=== PATIENT | female | born 1945 | race African-American/Black ===

== ENCOUNTER 2019-02-19 03:33 | Emergency (ER) | payer MEDICARE ==
[~2019-02-19] VITALS: Ht 160 cm; Wt 59.0 kg
[2019-02-19] MEDS ORDERED: GLUCOTROL10 MG ORAL (03:44)
[2019-02-19] MEDS ORDERED: FLUOXETINE HCL10 MG ORAL (03:44)
[2019-02-19] MEDS ORDERED: ASPIRIN81 MG ORAL (03:44)
[2019-02-19] MEDS ORDERED: FERROUS SULFAT325 MG ORAL (03:44)
[2019-02-19] MEDS ORDERED: LISINOPRIL30 MG ORAL (03:44)
[2019-02-19] MEDS ORDERED: METFORMIN HCL500 M1 ORAL (03:44)
[2019-02-19] MEDS ORDERED: HYDROCHLOROTHIA25 MG ORAL (03:44)
[2019-02-19 04:00] VITALS: BP 136/70
--- NOTE | 2019-02-19 04:00 | NUR ---
ED Nurse Note: PT WAS BROUGHT IN BY RA 41 FROM [facility] C/O VOMITING 5X STARTED @ 1500 YESTERDAY. pt is alert and oriented times 4 with pupiles rounds and reactive to light and accomodating. pt is ambulate with steady gait. pt cardicat assessment is within normal limits, with S1 and S2 noted, cap refill is less than with pulse and sensation noted on all extremities.
[2019-02-19] MEDS ORDERED: Isovue-300 100ml vial INJ PRN (04:15)
[2019-02-19 04:37] LABS: HEMATOCRIT 33.7 % (37.0-47.0); HEMOGLOBIN 11.6 G/DL (12.0-16.0); MEAN CORPUSCULAR VOLUME 86 FL (80-99); PLATELET COUNT 446 K/UL (150-450); RED BLOOD COUNT 3.91 M/UL (4.20-5.40); RED CELL DISTRIBUTION WIDTH 11.5 % (11.6-14.8); WHITE BLOOD COUNT 10.5 K/UL (4.8-10.8)
[2019-02-19 04:39] LABS: APPEARANCE,URINE CLOUDY; BILIRUBIN, URINE NEGATIVE (NEGATIVE); COLOR,URINE PALE YELLOW; GLUCOSE, URINE (UA) NEGATIVE (NEGATIVE); KETONES,URINE 2+ (NEGATIVE); LEUKOCYTE ESTERASE ,URINE 3+ (NEGATIVE); NITRITE,URINE NEGATIVE (NEGATIVE); PH,URINE 7 (4.5-8.0); PROTEIN,URINE 2+ (NEGATIVE); UROBILINOGEN,URINE 1 MG/DL (0.0-1.0)
[2019-02-19 04:48] LABS: ANION GAP 8 mmol/L (5-15); BLOOD UREA NITROGEN 18 mg/dL (7-18); CALCIUM 9.3 MG/DL (8.5-10.1); CARBON DIOXIDE 32 MMOL/L (21-32); CHLORIDE 98 MMOL/L (98-107); POTASSIUM 4.4 MMOL/L (3.5-5.1); SODIUM 138 MMOL/L (136-145)
--- NOTE | 2019-02-19 04:52 | Emergency Room Report ---
History of Present Illness General Chief Complaint: Vomiting Source: Patient, Family Member Present Illness HPI Patient is a 73-year-old female who presented via EMS after increased nausea and vomiting. Patient denies any abdominal pain. She reports of increased vomiting as well as watery diarrhea. She reports of increased abdominal discomfort. Patient had been noted to have multiple episodes of nonbilious nonbloody vomit. Patient denies any current discomfort. Allergies: Coded Allergies: AMLODIPINE (Verified Allergy, Unknown, 02/19/19) LOVASTATIN (Verified Allergy, Unknown, 02/19/19) SPIRONOLACTONE (Verified Allergy, Unknown, 02/19/19) TERAZOSIN (Verified Allergy, Unknown, 02/19/19) Uncoded Allergies: SHELLFISH (Allergy, Unknown, 02/19/19) Patient History Past Medical History: see triage record Last Menstrual Period: 2 DECADES AGO Now: No Reviewed Nursing Documentation: PMH: Agreed; PSxH: Agreed Nursing Documentation-PMH Hx Hypertension: Yes Hx Diabetes: Yes Review of Systems All Other Systems: negative except mentioned in HPI Physical Exam Vital Signs Date Time Temp Pulse Resp B/P (MAP) Pulse Ox O2 Delivery O2 Flow Rate FiO2 02/19/19 03:37 98.4 70 18 136/70 99 Room Air 02/19/19 04:00 99 Sp02 EP Interpretation: reviewed, normal General Appearance: normal inspection, well appearing, no apparent distress, alert, GCS 15 Head: atraumatic ENT: normal ENT inspection, hearing grossly normal, normal voice Neck: normal inspection, full range of motion, supple, no bony tend Respiratory: normal inspection, lungs clear, normal breath sounds, no respiratory distress, no retraction, no wheezing Cardiovascular #1: regular rate, rhythm, no edema Gastrointestinal: normal inspection, normal bowel sounds, non tender, soft, no guarding, no hernia Genitourinary: no CVA tenderness Musculoskeletal: normal inspection, back normal, normal range of motion Neurologic: normal inspection, alert, oriented x3, responsive, client customer manager III-XII nml as tested, speech normal Psychiatric: normal inspection, judgement/insight normal, mood/affect normal Skin: normal inspection, normal color, no rash Medical Decision Making Diagnostic Impression: Primary Impression: Vomiting Additional Impressions: Dehydration Non-STEMI (non-ST elevated myocardial infarction) Urinary tract infection ER Course Presented for vomiting and diarrhea. Differential diagnosis includes is not limited to appendicitis, bowel obstruction, diverticulitis among others. Because of complexity of patient's case laboratory testing and imaging studies were ordered. Laboratory testing showed evidence of urinary infection. Patient given IV antiemetics as well as IV fluids. She was started on IV antibiotics.Patient given aspirin as well as Lovenox after positive troponin. Patient does not have any current chest pain. Repeat troponin is currently pending. Patient was discussed with Dr. Velasco at [facility] for possible transfer. Labs Test 02/19/19 04:18 02/19/19 04:28 Urine Color Pale yellow Urine Appearance Cloudy Urine pH 7 (4.5-8.0) Urine Specific [place] 1.010 (1.005-1.035) Urine Protein 2+ (NEGATIVE) Urine Glucose (UA) Negative (NEGATIVE) Urine Ketones 2+ (NEGATIVE) Urine Blood 4+ (NEGATIVE) Urine Nitrite Negative (NEGATIVE) Urine Bilirubin Negative (NEGATIVE) Urine Urobilinogen 1 MG/DL (0.0-1.0) Urine Leukocyte Esterase 3+ (NEGATIVE) Urine RBC 15-20 /HPF (0 - 2) Urine WBC Tntc /HPF (0 - 2) Urine Squamous Epithelial Cells Moderate /LPF (NONE/OCC) Urine Bacteria Many /HPF (NONE) EKG Diagnostic Results Rate: normal Rhythm: NSR ST Segments: no acute changes Last Vital Signs Date Time Temp Pulse Resp B/P (MAP) Pulse Ox O2 Delivery O2 Flow Rate FiO2 02/19/19 04:00 70 18 Room Air 99 02/19/19 04:00 98.4 136/70 99 Status: improved [facility] Condition: Serious Referrals: NON PHYSICIAN (PCP) Claude Willis MD Feb 19, 2019 04:52
[2019-02-19 04:53] LABS: ALANINE AMINOTRANSFERASE 13 U/L (12-78); ALBUMIN 3.4 G/DL (3.4-5.0); ALBUMIN/GLOBULIN RATIO 0.9 (1.0-2.7); ALKALINE PHOSPHATASE 53 U/L (46-116); ASPARTATE AMINO TRANSFERASE 19 U/L (15-37); BILIRUBIN,TOTAL 0.3 MG/DL (0.2-1.0)
[2019-02-19] MEDS ORDERED: cefTRIAXone 1 GM in NS 55 ML IVPB ONE (05:00)
[2019-02-19] MEDS ORDERED: Enoxaparin 60mg Inj SUBQ ONE (05:45)
[2019-02-19 06:00] VITALS: BP 125/69
[2019-02-19 07:24] VITALS: BP 122/70
--- NOTE | 2019-02-19 07:24 | NUR ---
ED Nurse Note: REPORT RECEIVED FROM TYRA ARMENTA. AOX4. PT LAYING PEACEFULLY IN BED IN NAD. NORMAL SINUS RHYTHM ON MONITOR WITH BP: 122/65.
--- NOTE | 2019-02-19 07:25 | NUR ---
HAND-OFF: Report given to ILIANA Banuelos RN.
--- NOTE | 2019-02-19 07:35 | NUR ---
ED Nurse Note: TROPONIN REDRAWN AND SENT TO LAB.
--- NOTE | 2019-02-19 07:43 | NUR ---
Tita castro in EDM - 02/19/19 at 0747 by GAGANDEEP ED Note: RT CALLED FOR PT TRANSFER.
[2019-02-19 09:18] VITALS: BP 119/85
--- NOTE | 2019-02-19 09:56 | NUR ---
spoke to patients son regarding the transfer to [facility] room [facility]. transfer forms has been completed
--- NOTE | 2019-02-19 09:58 | NUR ---
ED Nurse Note: CALLED DANIE ROPER FOR REPORT. RN NOT READY. WILL CALL BACK IN 10 MINUTES.
--- NOTE | 2019-02-19 10:20 | NUR ---
ED Nurse Note: CALLED DANIE ROPER FOR REPORT. BEATA RN STILL NOT READY. WILL CALL BACK FOR REPORT WHEN READY.
--- NOTE | 2019-02-19 10:33 | NUR ---
ED Nurse Note: [facility] AM[facility] AT BEDSIDE. TYRA COTA FROM [facility] ON PHONE. REPORT GIVEN TO AMBULANCE RN, BEATA MACKAY RN, AND EMS. [facility] READY TO ACCEPT PT. PT TAKEN TO [facility] VIA AMBULANCE WITH ALL BELONGINGS ACCOMPANIED BY AMBULANCE RN AND EMS. VSS.
[2019-02-19 10:35] VITALS: BP 122/84
--- NOTE | 2019-02-19 12:47 | Diagnostic Imaging Report ---
Indication: Dyspnea Comparison: None A single view chest radiograph was obtained. Findings: Cardiomediastinal appearance is within normal limits for age. The lungs are clear. Pulmonary vascularity is appropriate. The diaphragmatic contour is smooth and costophrenic angles are sharp. No pleural effusions are identified. The bones are unremarkable. Impression: No acute findings
--- NOTE | 2019-02-20 23:59 | Cardiology Report ---
APPROVED REPORT EKG Measurement Heart [id number] [id number] Normal sinus rhythm Possible Left atrial enlargement Septal infarct, age undetermined Abnormal ECG
--- NOTE | 2019-02-20 23:59 | Cardiology Report ---
APPROVED REPORT EKG Measurement Heart [id number] [place] 140P83 [id number] Normal sinus rhythm Normal ECG
== END 2019-02-19 10:41 | disposition short-term general hospital (02) ==
LOC: EDBD 03:33 → EMR 04:00
DX: R11.2 Nausea with vomiting, unspecified (principal); E86.0 Dehydration; I21.4 Non-ST elevation (NSTEMI) myocardial infarction; N39.0 Urinary tract infection, site not specified; I10 Essential (primary) hypertension; E11.9 Type 2 diabetes mellitus without complications; Z88.8 Allergy status to other drugs, medicaments and biological substances; Z91.013 Allergy to seafood
CPT/HCPCS: 36415; 71045; 80053; 81003; 82962; 83690; 84484; 85025; 85610; 85730; 87086; 87181; 93005; 96365; 96375; 99284; J0696; J1650; J2405; J7040

== ENCOUNTER 2019-12-31 18:27 | Emergency (ER) | payer MEDICARE ==
[~2019-12-31] VITALS: Ht 160 cm; Wt 63.5 kg
[~2019-12-31 18:27] MED LIST: ASPIRIN81 MG ORAL; FERROUS SULFAT325 MG ORAL; FLUOXETINE HCL10 MG ORAL; GLUCOTROL10 MG ORAL; HYDROCHLOROTHIA25 MG ORAL; LISINOPRIL30 MG ORAL; METFORMIN HCL500 M1 ORAL
[2019-12-31] MEDS ORDERED: levETIRAcetam 1,000mg/NS100ml 100 ML IVPB ONE (18:45)
--- NOTE | 2019-12-31 18:45 | NUR ---
ED Nurse Note: PT brought in by ambulance from [email or web address] due to withnessed Sx that happedned while sitting on couch. ( lasting 5 min) PT denies any trauma.
--- NOTE | 2019-12-31 19:01 | Emergency Room Report ---
History of Present Illness General Chief Complaint: Seizure Source: Medical Record, EMS Present Illness HPI Disclaimer: Please note that this report is being documented using DRAGON technology. This can lead to erroneous entry secondary to incorrect interpretation by the dictating instrument. HPI: 74-year-old female with a history of seizure disorder presents for evaluation after a seizure. She presents from [facility]. She had a witnessed 5-minute generalized tonic-clonic seizure while seated on the couch. There was no head injury. Reports prolonged postictal phase. She takes Keppra. On my arrival in the room the patient started vomiting. She is confused but awake and moving all extremities. Cannot provide any significant history at this time. Fingerstick reported by EMS was 200 PMH: Seizure disorder, hypertension, hyperlipidemia, diabetes PSH: Unknown Allergies: Amlodipine, spironolactone Social Hx: Unknown Allergies: Coded Allergies: AMLODIPINE (Verified Allergy, Unknown, 02/19/19) LOVASTATIN (Verified Allergy, Unknown, 02/19/19) SPIRONOLACTONE (Verified Allergy, Unknown, 02/19/19) TERAZOSIN (Verified Allergy, Unknown, 02/19/19) Uncoded Allergies: SHELLFISH (Allergy, Unknown, 02/19/19) Nursing Documentation-PMH Past Medical History: No History, Except For Hx Hypertension: Yes Hx Diabetes: Yes Review of Systems All Other Systems: limited - Patient altered Physical Exam Vital Signs Date Time Temp Pulse Resp B/P (MAP) Pulse Ox O2 Delivery O2 Flow Rate FiO2 12/31/19 18:38 98.2 16 18 188/58 (101) 97 Room Air General: Awake, confused, hypertensive, vomiting HEENT: NC/AT. EOMI. Cardiovascular: RRR. S1 and S2 normal. No murmur appreciated Resp: Normal work of breathing. No cough, wheezing or crackles appreciated Abdomen: Actively vomiting, difficult who performed abdominal exam Skin: Intact. No abrasions, laceration or rash over the exposed skin MSK: Normal tone and bulk. Moving all extremities. No obvious deformity. Neuro: Awake, confused, moving all extremities Medical Decision Making Diagnostic Impression: Primary Impression: Seizures Additional Impressions: Vomiting Lung nodule Renal cyst Fibroid Small vessel disease ER Course 74-year-old female history of seizure disorder presents for assisted living facility after a generalized seizure lasting 5 minutes without head injury. She is currently vomiting. She is remains altered though unknown what her baseline is. No accompanying documents signs. Will send for CT scans of the head and abdomen as well as broad labs including Keppra levels. Will load with Keppra. She will require admission. Laboratory Tests Test 12/31/19 19:00 12/31/19 19:50 White Blood Count 13.2 K/UL (4.8-10.8) H Red Blood Count 4.40 M/UL (4.20-5.40) Hemoglobin 12.6 G/DL (12.0-16.0) Hematocrit 38.6 % (37.0-47.0) Mean Corpuscular Volume 88 FL (80-99) Mean Corpuscular Hemoglobin 28.6 PG (27.0-31.0) Mean Corpuscular Hemoglobin Concent 32.6 G/DL (32.0-36.0) Red Cell Distribution Width 14.5 % (11.6-14.8) Platelet Count 398 K/UL (150-450) Mean Platelet Volume 6.5 FL (6.5-10.1) Neutrophils (%) (Auto) 67.8 % (45.0-75.0) Lymphocytes (%) (Auto) 19.8 % (20.0-45.0) L Monocytes (%) (Auto) 10.0 % (1.0-10.0) Eosinophils (%) (Auto) 1.0 % (0.0-3.0) Basophils (%) (Auto) 1.3 % (0.0-2.0) Sodium Level 139 MMOL/L (136-145) Potassium Level 4.2 MMOL/L (3.5-5.1) Chloride Level 99 MMOL/L (98-107) Carbon Dioxide Level 26 MMOL/L (21-32) Anion Gap 15 mmol/L (5-15) Blood Urea Nitrogen 16 mg/dL (7-18) Creatinine 1.1 MG/DL (0.55-1.30) Estimate Glomerular Filtration Rate mL/min (>60) Glucose Level 170 MG/DL (74-106) H Calcium Level 8.8 MG/DL (8.5-10.1) Total Bilirubin 0.2 MG/DL (0.2-1.0) Aspartate Amino Transferase (AST) 39 U/L (15-37) H Alanine Aminotransferase (ALT) 32 U/L (12-78) Alkaline Phosphatase 94 U/L (46-116) Troponin I Pending Total Protein 7.7 G/DL (6.4-8.2) Albumin 3.5 G/DL (3.4-5.0) Globulin 4.2 g/dL Albumin/Globulin Ratio 0.8 (1.0-2.7) L Lipase 101 U/L (73-393) Salicylates Level 1.4 ug/mL (2.8-20) L Acetaminophen Level < 2 MCG/ML (10-30) L Serum Alcohol < 3 mg/dL Urine Color Pale yellow Urine Appearance Clear Urine pH 5 (4.5-8.0) Urine Specific [place] 1.015 (1.005-1.035) Urine Protein 3+ (NEGATIVE) H Urine Glucose (UA) 2+ (NEGATIVE) H Urine Ketones 1+ (NEGATIVE) H Urine Blood 3+ (NEGATIVE) H Urine Nitrite Negative (NEGATIVE) Urine Bilirubin Negative (NEGATIVE) Urine Urobilinogen Normal MG/DL (0.0-1.0) Urine Leukocyte Esterase Negative (NEGATIVE) Urine RBC 2-4 /HPF (0 - 2) H Urine WBC 0-2 /HPF (0 - 2) Urine Squamous Epithelial Cells Few /LPF (NONE/OCC) Urine Bacteria Few /HPF (NONE) Urine Opiates Screen Negative (NEGATIVE) Urine Barbiturates Screen Negative (NEGATIVE) Phencyclidine (PCP) Screen Negative (NEGATIVE) Urine Amphetamines Screen Negative (NEGATIVE) Urine Benzodiazepines Screen Negative (NEGATIVE) Urine Cocaine Screen Negative (NEGATIVE) Urine Marijuana (THC) Screen Negative (NEGATIVE) EKG Diagnostic Results EKG Time: 19:33 Rate: normal Rhythm: NSR ST Segments: no acute changes Other Impression Sinus rhythm, left axis deviation, no ST segment changes. Normal intervals Rhythm Strip Diag. Results Rhythm Strip Time: 19:33 EP Interpretation: yes Rate: 90 Rhythm: NSR, no PVC's, no ectopy CT/MRI/US Diagnostic Results CT/MRI/US Diagnostic Results : Impression Preliminary Findings Only See Final Report For Complete Findings CT ABDOMEN & PELVIS Without Contrast: Limited by motion and lack of contrast. Note evidence of colitis or bowel obstruction. Appendix not identified. Small hiatal hernia. No radiodense gallstones or pancreatitis. No renal calculi or obstructive changes. Right renal cyst. Calcified fibroid. Old rib fractures. Couple nodules in the lung bases Radiologist: Kerry Lyles M.D. Preliminary Findings Only See Final Report For Complete Findings CT HEAD Without Contrast: No acute intracranial process. Involutional changes with small vessel disease. Cataract surgery. Radiologist: Kerry Lyles M.D. Study ready at 20:19 and initial results transmitted at 20:28 Reevaluation Time: 21:17 Last Vital Signs Date Time Temp Pulse Resp B/P (MAP) Pulse Ox O2 Delivery O2 Flow Rate FiO2 12/31/19 18:38 98.2 16 18 188/58 (101) 97 Room Air Reevaluation Impression Shortly after my initial evaluation the patient she had another brief generalized tonic-clonic seizure lasting approximately 30 seconds and aborted with 2 mg of Ativan. She is again postictal. No evidence of acute injury on CT scan of the head but does note small vessel disease. CT scan of the abdomen without contrast was performed showing a small hiatal hernia but no evidence of bowel obstruction no gallstones or kidney stones. They noted a right renal cyst a calcified fibroid old rib fractures and multiple nodules in the lung bases. Hypertension is improving. She was given her home dose of hydralazine. Labs unremarkable. Patient remains somnolent after receiving the 2 mg of Ativan. She is protecting her airway and had no further episodes of emesis. Patient is stable for transfer to a [facility] facility according to her health plan. [facility]position: [facility] Condition: Stable Martin Jackson MD Dec 31, 2019 19:01
[2019-12-31 19:05] VITALS: BP 188/58
--- NOTE | 2019-12-31 19:05 | NUR ---
ED Nurse Note: Patient was brought in by ambulance from [facility] due to witnessed seizure 5 min while patient was sittting in a couch, lasted 5 min; reports no trauma. Patient presented confused, disoriented, AAO x0, O2 sat87% on RA. Patient was placed on 2L via NC.
[2019-12-31] MEDS ORDERED: LORazepam Inj 2mg/ml 1ml ONE (19:14)
--- NOTE | 2019-12-31 19:14 | NUR ---
ED Nurse Note: Patient had seizure, duration 2 min.
[2019-12-31 19:17] LABS: BASOPHILS % (AUTO) 1.3 % (0.0-2.0); HEMATOCRIT 38.6 % (37.0-47.0); HEMOGLOBIN 12.6 G/DL (12.0-16.0); LYMPHOCYTES % (AUTO) 19.8 % (20.0-45.0); MEAN CORPUSCULAR VOLUME 88 FL (80-99); NEUTROPHILS % (AUTO) 67.8 % (45.0-75.0); PLATELET COUNT 398 K/UL (150-450); RED CELL DISTRIBUTION WIDTH 14.5 % (11.6-14.8); WHITE BLOOD COUNT 13.2 K/UL (4.8-10.8)
[2019-12-31 19:25] LABS: ANION GAP 15 mmol/L (5-15); BLOOD UREA NITROGEN 16 mg/dL (7-18); CALCIUM 8.8 MG/DL (8.5-10.1); CARBON DIOXIDE 26 MMOL/L (21-32); CHLORIDE 99 MMOL/L (98-107); CREATININE 1.1 MG/DL (0.55-1.30); POTASSIUM 4.2 MMOL/L (3.5-5.1); SODIUM 139 MMOL/L (136-145)
[2019-12-31 19:30] LABS: ALANINE AMINOTRANSFERASE 32 U/L (12-78); ALBUMIN 3.5 G/DL (3.4-5.0); ALBUMIN/GLOBULIN RATIO 0.8 (1.0-2.7); ALKALINE PHOSPHATASE 94 U/L (46-116); ASPARTATE AMINO TRANSFERASE 39 U/L (15-37); BILIRUBIN,TOTAL 0.2 MG/DL (0.2-1.0)
[2019-12-31] MEDS ORDERED: LORazepam Inj 2mg/ml 1ml IV ONE (19:30)
--- NOTE | 2019-12-31 20:29 | Diagnostic Imaging Report ---
Indication: Headache Technique: Contiguous 5 mm thick transaxial imaging of the head obtained in a Siemens Sensation [address] scanner. Soft tissue and bone windows generated. Automatic Exposure Control was utilized. Total Dose length Product (DLP): 1363.[address] Dose Index Volume (CTDIvol): 62.7 mGy Comparison: none Findings: There is moderate prominence of the ventricles, basal cisterns, and cerebral sulci consistent with atrophy. There is a central predominance of the atrophy. Moderate, nonspecific, white matter hypoattenuation is noted throughout the brain consistent with chronic small vessel disease. There is no midline shift, edema, acute hemorrhage, mass effect, or abnormal extra-axial fluid collections. Bones are unremarkable. Impression: No acute intracranial bleed, mass effect or edema. Moderate atrophy of the brain. Evidence of chronic small vessel disease involving white matter tracts. [facility] has communicated the preliminary results to the Emergency Department. Their findings are largely concordant with this report. The CT scanner at [facility] is accredited by the [employer] and the scans are performed using dose optimization techniques as appropriate to a performed exam including Automatic Exposure control.
[2019-12-31 20:39] LABS: APPEARANCE,URINE CLEAR; BILIRUBIN, URINE NEGATIVE (NEGATIVE); COLOR,URINE PALE YELLOW; GLUCOSE, URINE (UA) 2+ (NEGATIVE); KETONES,URINE 1+ (NEGATIVE); LEUKOCYTE ESTERASE ,URINE NEGATIVE (NEGATIVE); NITRITE,URINE NEGATIVE (NEGATIVE); PH,URINE 5 (4.5-8.0); PROTEIN,URINE 3+ (NEGATIVE); UROBILINOGEN,URINE NORMAL MG/DL (0.0-1.0)
[2019-12-31 20:52] VITALS: BP 168/98
--- NOTE | 2019-12-31 20:52 | NUR ---
ED Nurse Note: Patient sleeping, VSS at this time, no acute distress noted.
--- NOTE | 2019-12-31 20:53 | Diagnostic Imaging Report ---
INDICATION: Abdominal pain TECHNIQUE: Continuous helical transaxial imaging of the abdomen and pelvis was obtained from the lung bases to the pubic symphysis. No intravenous contrast was administered. Coronal 2-D reformats were also obtained. Automatic Exposure Control was utilized. Total Dose length Product (DLP): [address] Dose Index Volume (CTDIvol): 12.4 mGy Comparison: none FINDINGS: Lungs: There are mild reticular densities posterior lung base. This is likely dependent phenomena or atelectasis. There is a small hiatal hernia. The heart is mildly prominent in size.. Liver: No gross abnormalities are seen but there is considerable artifact and limitation. Gallbladder/biliary system: Again, no obvious abnormality seen. No biliary ductal dilatation is appreciated.. Spleen: Unremarkable Pancreas: Unremarkable Kidneys: There is no hydronephrosis. There is a 1.7 cm hypodensity in the central part of the right kidney nonspecific.. Adrenal glands: Grossly unremarkable. Bowel: No obvious evidence of bowel obstruction but there are very limited. Moderate stool retention in the colon and rectum noted. The rectum is a mildly distended. Bladder: Unremarkable Aorta/IVC: Mural calcification within the aorta and iliac arteries is moderate. Peritoneum: There is a calcified uterine fibroid measuring about 2.2 cm.. No free fluid is identified. Bones: Bones are osteopenic. There is vacuum phenomenon narrowing of the L5-S1 disc. IMPRESSION: Very limited study due to the nonadministration of oral and IV contrast and other artifacts. Basal atelectasis. Right renal hypodensity nonspecific. Cystic versus solid. Moderate fecal retention within the colon and rectum. Calcified uterine fibroid [facility] has communicated the preliminary results to the Emergency Department. Their findings are largely concordant with this report. Note: Evaluation of solid organs is limited on non contrast imaging. The CT scanner at [facility] is accredited by the [employer] and the scans are performed using dose optimization techniques as appropriate to a performed exam including Automatic Exposure control.
[2019-12-31] MEDS ORDERED: APRESOLINE50 MG ORAL (21:11)
[2019-12-31] MEDS ORDERED: ISOSORBIDE MONO30 M1 PO (21:11)
[2019-12-31] MEDS ORDERED: ATORVASTATIN CA40 MG ORAL (21:11)
[2019-12-31 21:37] VITALS: BP 177/88
[2020-01-01 00:41] VITALS: BP 162/88
[2020-01-01 00:50] VITALS: BP 156/98
--- NOTE | 2020-01-01 00:53 | NUR ---
ED Nurse Note: Patient was transfered to [facility] via [facility] private transportation # [id number], ALS. Patient AAO x 0, VSS at this time, skin is intact, warm to touch. Patient was transfered with all belongings.
== END 2020-01-01 00:56 | disposition short-term general hospital (02) ==
LOC: EDBD 18:27 → EMR 19:43
DX: G40.409 Other generalized epilepsy and epileptic syndromes, not intractable, without status epilepticus (principal); R11.10 Vomiting, unspecified; R91.8 Other nonspecific abnormal finding of lung field; N28.1 Cyst of kidney, acquired; D25.9 Leiomyoma of uterus, unspecified; I73.9 Peripheral vascular disease, unspecified; I10 Essential (primary) hypertension; E11.9 Type 2 diabetes mellitus without complications; E78.5 Hyperlipidemia, unspecified; Z91.013 Allergy to seafood; Z88.8 Allergy status to other drugs, medicaments and biological substances; Z79.899 Other long term (current) drug therapy
CPT/HCPCS: 36415; 70450; 74176; 80053; 80307; 81003; 82962; 83690; 84484; 85025; 93005; 96374; 96375; 96376; 99285; G0480; J0360; J1953; J2405